=== PATIENT | female | born 1970 | race Hispanic/Latino ===

== ENCOUNTER → 2020-07-24 | Outpatient (CLI) | payer SELFPAY ==
[~2020-07-24] MED LIST: IOHEXOL-350 50ML VIAL IV ONE
== END | disposition home or self-care (01) ==
LOC: RAH 13:30
PROVIDERS: ATTEND Otolaryngology
DX: H92.09 Otalgia, unspecified ear (principal)
CPT/HCPCS: 70491; Q9967

== ENCOUNTER 2021-02-25 06:25 | Day surgery (SDC) | payer OTHER ==
[2021-02-21 10:54] LABS: BASOPHILS % (AUTO) 0.5 % (0.0-5.0); EOSINOPHILS % (AUTO) 0.9 % (0.0-8.0); MEAN CORPUSCULAR HEMOGLOBIN 28.1 pg (27.0-33.0); MEAN CORPUSCULAR HGB CONC 31.4 g/dL (32.0-36.0); MEAN CORPUSCULAR VOLUME 89.4 fL (79-99); MONOCYTES % (AUTO) 4.8 % (3.0-13.0); NEUTROPHILS % (AUTO) 67.6 % (40.0-77.0); PLATELET COUNT (AUTO) 242 K/uL (130-400); RED CELL DISTRIBUTION WIDTH 14.5 % (11.0-15.5); WHITE BLOOD COUNT (AUTO) 9.6 K/uL (4.8-10.8)
[2021-02-21 11:03] LABS: CREATININE 0.8 mg/dL (0.5-1.5); POTASSIUM 4.6 mmol/L (3.5-5.1)
[2021-02-22 10:33] VITALS: BP 132/78
[~2021-02-25] VITALS: Ht 162.6 cm; Wt 90.7 kg
[2021-02-25] VITALS (16 sets, daily range): BP systolic 100–125; BP diastolic 53–84
[~2021-02-25 06:25] MED LIST changes: +CEFAZOLIN SODIUM 1 GM VIAL IVP SCH; -IOHEXOL-350 50ML VIAL IV ONE; +LISI1TAB32 PO; +METF-444 PO
[2021-02-25] MEDS ORDERED: SODIUM CHLORIDE 0.9% 1000ML 1,000 ML IV ONE (06:27)
[2021-02-25] MEDS ORDERED: LIDOCAINE PF 100MG/5ML (2%) SYRINGE 5ML ONE (07:49)
[2021-02-25] MEDS ORDERED: MIDAZOLAM HCL 1 MG/ML 2ML VIAL ONE (07:50)
[2021-02-25] MEDS ORDERED: DEXAMETHASONE SOD PHOSPHATE 10MG/ML 1ML VIAL ONE (07:50)
[2021-02-25] MEDS ORDERED: PROPOFOL 10 MG/ML 20ML VIAL IV ONE (07:50)
[2021-02-25] MEDS ORDERED: ONDANSETRON HCL 4 MG/2 ML VIAL ONE (07:50)
[2021-02-25] MEDS ORDERED: FENTANYL CITRATE PF 50 MCG/1 ML 2ML VIAL ONE ×2 (07:50→09:57)
[2021-02-25] MEDS ORDERED: MEPERIDINE-PF 25 MG/ML SYG ONE ×2 (07:51→09:33)
[2021-02-25] MEDS ORDERED: EPHEDRINE SULFATE 50 MG/ML AMPULE ONE (09:27)
[2021-02-25] MEDS ORDERED: KETOROLAC 30MG VIAL (30MG/ML) ONE (09:30)
[2021-02-25] MEDS ORDERED: ACET1TAB25 PO ×2 (10:10→10:13)
[2021-02-25] MEDS ORDERED: CEPH500B PO (10:13)
[2021-02-25] MEDS ORDERED: CELE200C PO (10:13)
== END 2021-02-25 11:50 | disposition home or self-care (01) ==
LOC: DAH 06:25
PROVIDERS: ATTEND Orthopaedic Surgery
DX: S83.272A Complex tear of lateral meniscus, current injury, left knee, initial encounter (principal); Z20.822 Contact with and (suspected) exposure to COVID-19; I10 Essential (primary) hypertension; E11.9 Type 2 diabetes mellitus without complications; Z79.899 Other long term (current) drug therapy; Z79.84 Long term (current) use of oral hypoglycemic drugs; Z98.891 History of uterine scar from previous surgery; Z98.51 Tubal ligation status; Z82.49 Family history of ischemic heart disease and other diseases of the circulatory system; Z83.3 Family history of diabetes mellitus; X50.1XXA Overexertion from prolonged static or awkward postures, initial encounter; Y93.89 Activity, other specified; Y92.89 Other specified places as the place of occurrence of the external cause; Y99.8 Other external cause status
CPT/HCPCS: 29881; 36415; 80048; 82948 ×2; 85025; 87635; A4215; A4221; A4222; A4223; A4606; A4649 ×2; A4930 ×2; A6223; C9803; J0690; J1100; J1885; J2001; J2175 ×2; J2250; J2405; J2704; J3010 ×2; J3490; J7030 ×2; J7120